=== PATIENT | male | born 1980 | race African-American/Black ===

== ENCOUNTER 2018-11-04 16:44 | Emergency (ER) | payer MEDICARE, MEDICAID ==
[~2018-11-04] VITALS: Ht 188 cm; Wt 145.0 kg
[2018-11-04] MEDS ORDERED: MORPHINE SULFATE 4 MG/ML CPJ (NOT FOR IM USE) IV ONE ×2 (18:30→19:00)
[2018-11-04] MEDS ORDERED: KETOROLAC 30MG/ML VIAL IV ONE (19:00)
[2018-11-04] MEDS ORDERED: KETAMINE HCL 50 MG/ML 10ML IV ONE (19:30)
[2018-11-04] MEDS ORDERED: PROPOFOL 200MG/20ML VIAL IV ONE (19:30)
[2018-11-04 21:31] VITALS: BP 171/112
== END 2018-11-04 21:34 | disposition home or self-care (01) ==
LOC: ER 16:44
DX: S43.005A Unspecified dislocation of left shoulder joint, initial encounter (principal); J45.909 Unspecified asthma, uncomplicated; F12.10 Cannabis abuse, uncomplicated; Z98.890 Other specified postprocedural states; W01.0XXA Fall on same level from slipping, tripping and stumbling without subsequent striking against object, initial encounter; Y93.89 Activity, other specified; Y92.89 Other specified places as the place of occurrence of the external cause; Y99.8 Other external cause status
CPT/HCPCS: 23650; 73030; 73070; 73110; 96374; 96375; 96376; 99152; 99153; 99285; J1885; J2270; J2704; J3490; L3670